=== PATIENT | female | born 1990 | race Caucasian/White ===

== ENCOUNTER 2018-03-14 04:01 | Emergency (ER) | payer BC, MEDICAID ==
[~2018-03-14] VITALS: Ht 160 cm; Wt 54.4 kg
[~2018-03-14 04:01] MED LIST: ALBU17AE26 INH
[2018-03-14 04:05] VITALS: BP_SYST 127
[2018-03-14] MEDS ORDERED: NACL 0.9% 1,000 ML IV ONE (04:16)
[2018-03-14] MEDS ORDERED: KETOROLAC TROMETHAMINE 30 MG VIAL IVP ONE (04:30)
[2018-03-14 05:24] LABS: BASOPHILS % (AUTO) 0.3 % (0.0-2.0); EOSINOPHILS # (AUTO) 0.1 K/uL (0.0-0.4); EOSINOPHILS % (AUTO) 1.3 % (0.0-4.0); HEMOGLOBIN 14.2 g/dL (12.0-16.0); LYMPHOCYTES # (AUTO) 2.9 K/uL (1.0-5.5); LYMPHOCYTES % (AUTO) 26.2 % (20.5-51.5); MEAN CORPUSCULAR HEMOGLOBIN 32 pg (27-31); MEAN CORPUSCULAR HGB CONC 35 % (32-36); MEAN CORPUSCULAR VOLUME 91 fL (79.0-98.0); MONOCYTES # (AUTO) 0.7 K/uL (0.0-1.0); MONOCYTES % (AUTO) 5.9 % (1.7-9.3); NEUTROPHILS # (AUTO) 7.5 K/uL (1.8-7.7); NEUTROPHILS % (AUTO) 66.3 % (40.0-70.0); PLATELET COUNT (AUTO) 327 K/uL (130-430); RED BLOOD CELL COUNT(AUTO) 4.51 MIL/uL (4.2-6.2); RED CELL DISTRIBUTION WIDTH 11.8 % (9.0-15.0); WHITE BLOOD COUNT (AUTO) 11.2 K/uL (4.8-10.8)
[2018-03-14] MEDS ORDERED: MORPHINE 4 MG/ML INJ. SYRINGE IVP ONE (05:30)
[2018-03-14 05:35] LABS: CALCIUM 8.8 mg/dL (8.4-11.0); CREATININE 0.68 mg/dL (0.55-1.30); POTASSIUM 3.3 mmol/L (3.5-5.1)
[2018-03-14 05:40] LABS: ALBUMIN 4.1 g/dL (3.4-4.8); TOTAL BILIRUBIN 1.5 mg/dL (0.0-1.0)
[2018-03-14 06:55] VITALS: BP_SYST 107
== END 2018-03-14 06:55 | disposition home or self-care (01) ==
LOC: SED 04:01
DX: N83.291 Other ovarian cyst, right side (principal); R03.0 Elevated blood-pressure reading, without diagnosis of hypertension; J45.909 Unspecified asthma, uncomplicated
CPT/HCPCS: 36415; 74176; 80053; 81025; 85025; 87040; 96361; 96374; 96375; 99285; J1885; J2270; J7030

== ENCOUNTER 2018-05-15 22:47 | Emergency (ER) | payer BC ==
[~2018-05-15] VITALS: Ht 160 cm; Wt 54.4 kg
[2018-05-15 22:51] VITALS: BP_SYST 136
[2018-05-15] MEDS ORDERED: BACITRACIN 1 GM OINT TP ONE (23:15)
[2018-05-15 23:18] VITALS: BP_SYST 136
[2018-05-16] MEDS ORDERED: NEOMY SULF/BACITRA/POLYMYXIN B 3.5 GM OPHT. OINT. OP SCH (06:00)
[2018-05-16] MEDS ORDERED: BACITRACIN/POLYMYXIN B SULFATE 30 GM TOPICAL OINT. TP SCH (09:00)
== END 2018-05-15 23:18 ==
LOC: SED 22:47
DX: Z02.89 Encounter for other administrative examinations (principal); J45.909 Unspecified asthma, uncomplicated
CPT/HCPCS: 99283

== ENCOUNTER 2019-07-29 16:00 | Observation (INO) | payer BC | END 2019-07-29 17:05 | disposition home or self-care (01) | LOC: SPU 16:00 | PROVIDERS: ADMIT Obstetrics & Gynecology; ATTEND Obstetrics & Gynecology | DX: O26.892 Other specified pregnancy related conditions, second trimester (principal); R10.9 Unspecified abdominal pain; Z3A.20 20 weeks gestation of pregnancy | CPT/HCPCS: G0378 ==

== ENCOUNTER 2019-10-06 11:49 | Emergency (ER) | payer BC ==
[~2019-10-06] VITALS: Ht 160 cm; Wt 63.5 kg
[2019-10-06 11:49] VITALS: BP_SYST 111
--- NOTE | 2019-10-06 11:49 | NUR ---
BROUGHT BACK TO BED #4 AND TRIAGED. REPORT GIVEN TO PATEL.
--- NOTE | 2019-10-06 11:50 | NUR ---
pt arrives from home w/ c/o dizziness
--- NOTE | 2019-10-06 12:00 | NUR ---
ER at bedside examining patient.
[2019-10-06 12:26] LABS: BASOPHILS % (AUTO) 0.4 % (0.0-2.0); EOSINOPHILS # (AUTO) 0.2 K/uL (0.0-0.4); EOSINOPHILS % (AUTO) 1.9 % (0.0-4.0); HEMOGLOBIN 11.2 g/dL (12.0-16.0); LYMPHOCYTES # (AUTO) 1.5 K/uL (1.0-5.5); LYMPHOCYTES % (AUTO) 16.2 % (20.5-51.5); MEAN CORPUSCULAR HEMOGLOBIN 32 pg (27-31); MEAN CORPUSCULAR HGB CONC 35 % (32-36); MEAN CORPUSCULAR VOLUME 93 fL (79.0-98.0); MONOCYTES # (AUTO) 0.8 K/uL (0.0-1.0); MONOCYTES % (AUTO) 8.2 % (1.7-9.3); NEUTROPHILS # (AUTO) 6.8 K/uL (1.8-7.7); NEUTROPHILS % (AUTO) 73.3 % (40.0-70.0); PLATELET COUNT (AUTO) 281 K/uL (130-430); RED BLOOD CELL COUNT(AUTO) 3.45 MIL/uL (4.2-6.2); WHITE BLOOD COUNT (AUTO) 9.3 K/uL (4.8-10.8)
[2019-10-06 12:40] LABS: PROTHROMBIN TIME 9.6 SECS (9.5-12.5)
[2019-10-06 12:46] LABS: ANION GAP 9 (5-15); CALCIUM 8.5 mg/dL (8.4-11.0); CHLORIDE 104 mmol/L (98-107); GLUCOSE 72 mg/dL (70-99); POTASSIUM 3.9 mmol/L (3.5-5.1); SODIUM SERUM 136 mmol/L (136-145); UREA NITROGEN, BLOOD 8 mg/dL (8-21)
[2019-10-06 12:47] LABS: GFR AFRICAN AMERICAN 185 mL/min (>90)
[2019-10-06 12:53] VITALS: BP_SYST 94
[2019-10-06 12:59] LABS: ALANINE AMINOTRANSFERASE 12 U/L (12-78); ALBUMIN 2.5 g/dL (3.4-4.8); ALCOHOL, BLOOD < 3 mg/dL (<10); ASPARTATE AMINOTRANSFERASE 12 U/L (10-37); FREE T4 (FREE THYROXINE) 0.8 ng/dl (0.8-1.5); TOTAL BILIRUBIN 0.4 mg/dL (0.0-1.0)
[2019-10-06 13:17] LABS: BARBITURATE, URINE NEGATIVE (NEG <=200); BENZODIAZEPINE, URINE NEGATIVE (NEG <=150); CANNABINOID, URINE NEGATIVE (NEG <=50); COCAINE, URINE NEGATIVE (NEG <=150); METHAMPHETAMINES SCREEN,URINE NEGATIVE (NEG <=500); OPIATE, URINE NEGATIVE (NEG <=100); PHENCYCLIDINE SCREEN,URINE NEGATIVE (NEG <=25); UR TRICYCLIC ANTIDEPRESSANTS NEGATIVE (NEG <=300); URINE AMPHETAMINE NEGATIVE (NEG <=500); URINE METHADONE NEGATIVE (NEG <=200); URINE OXYCODONE SCREEN NEGATIVE (NEG <=100); URINE PROPOXYPHENE SCREEN NEGATIVE (NEG <=300)
--- NOTE | 2019-10-06 13:30 | NUR ---
Patient given written and verbal discharge instructions and verbalizes understanding. ER MD discussed with patient the results and treatment provided. Patient in stable condition. ID arm band removed. Patient educated on pain management and to follow up with PMD. Opportunity for questions provided and answered. Medication side effect fact sheet provided.
== END 2019-10-06 13:30 | disposition home or self-care (01) ==
LOC: SED 11:49
DX: R55 Syncope and collapse (principal); J45.909 Unspecified asthma, uncomplicated
CPT/HCPCS: 36415; 80053; 80307; 82140; 83605; 83880; 84439; 84484; 85025; 85610; 87040; 93005; 99284; G0482

== ENCOUNTER 2022-11-27 10:41 | Outpatient (CLI) | payer BC ==
[2022-11-27] MEDS ORDERED: CYSTOGRAFIN 300 ML INFUS..BTL UR ONE (11:20)
== END 2022-11-27 19:33 | disposition home or self-care (01) ==
LOC: SRD 10:41
PROVIDERS: ATTEND Urology
DX: N39.46 Mixed incontinence (principal)
CPT/HCPCS: 74430; 51600; Q9958